=== PATIENT | female | born 1990 | race Caucasian/White ===

== ENCOUNTER 2016-04-02 13:39 | Outpatient (CLI) ==
[2015-09-26 15:52] VITALS: BMI 17.1
[2016-04-02 14:35] LABS: ALBUMIN/GLOBULIN RATIO 1.25; ANION GAP 15.8; BILIRUBIN,TOTAL 0.38 mg/dL (0.00-1.20); BUN/CREATININE RATIO 11.25; CREATININE 0.8 mg/dL (0.60-1.30); POTASSIUM 3.8 mmol/L (3.5-5.10); TOTAL PROTEIN 7.2 g/dL (6.4-8.2)
[2016-04-04 08:51] LABS: THYROGLOBULIN ANTIBODY <1.0 IU/mL (0.0-0.9); THYROGLOBULIN BY IMA 3.2 ng/mL (1.5-38.5)
== END 2016-04-02 13:40 | disposition home or self-care (01) ==
LOC: LAB 13:39
PROVIDERS: ATTEND Internal Medicine Endocrinology, Diabetes & Metabolism
DX: E89.0 Postprocedural hypothyroidism (principal); E83.51 Hypocalcemia; E20.9 Hypoparathyroidism, unspecified
CPT/HCPCS: 36415; 80053; 84100; 84439; 84443; 86800

== ENCOUNTER 2016-09-10 11:39 | Outpatient (CLI) ==
[2015-09-26 15:52] VITALS: BMI 17.1
[2016-09-10 12:55] LABS: CALCIUM 7.6 mg/dL (8.2-10.2); PHOSPHORUS 4.8 mg/dL (2.5-4.9)
== END 2016-09-10 11:40 | disposition home or self-care (01) ==
LOC: LAB 11:39
PROVIDERS: ATTEND Internal Medicine Endocrinology, Diabetes & Metabolism
DX: E89.0 Postprocedural hypothyroidism (principal); E20.9 Hypoparathyroidism, unspecified; E83.51 Hypocalcemia
CPT/HCPCS: 36415; 82306; 82310; 83970; 84100; 84439; 84443; 86800

== ENCOUNTER 2016-12-07 17:16 | Emergency (ER) ==
[2016-12-07 17:22] VITALS: BP 106/68; TEMP 98.9; BMI 22.4
--- NOTE | 2016-12-07 18:00 | ED.PDOC ---
General ED Provider: Dr. JUNIOR BREAUX-ER Chief Complaint: Non-specific Complaint Stated Complaint: my jaws hurt to chew Time Seen by Physician: 17:20 Mode of Arrival: Walk-In Information Source: Patient Exam Limitations: No limitations [facility] and Triage Documentation Reviewed and Agree: Yes EENT Complaint Exam - Dental/Oral Complaint/Exam Mechanism of Injury: No known trauma Onset/Duration: several days Symptoms Are: Still present Timing: Intermittent Initial Severity: Mild Current Severity: Moderate Location: both tmj areas Character: Reports: Dull, Aching Aggravating: Reports: Heat, Cold, Chewing Alleviating: Reports: None Associated Signs and Symptoms: Denies: Swelling, Discharge, Fever, Foul odor, Foul taste in mouth Related History: Reports: Similar episode Dental/Oral Surgical History: Reports: None Tooth Findings: Present: Normal findings Cervical Lymphadenopathy Present: No Facial Swelling Present: No Bleeding Present: No Oropharynx Findings: Absent: Clots, Active bleeding Septal Hematoma: No Foreign Body Present: No Dysphagia Present: No Drooling Present: No Asymmetrical Tonsillar Swelling Present: No Uvula Midline: No Ivanna-tonsillar Fluctuence: No Trismus Present: No Palatal Petechiae Present: No Scarlatinaform Rash Present: No Differential Diagnoses: TMJ Syndrome Review of Systems - Review Of Systems Constitutional: Reports: No symptoms Eyes: Reports: No symptoms Ears, Nose, Mouth, Throat: Reports: Mouth pain Respiratory: Reports: No symptoms Cardiac: Reports: No symptoms GI: Reports: No symptoms : Reports: No symptoms Musculoskeletal: Reports: No symptoms Skin: Reports: No symptoms Neurological: Reports: No symptoms Endocrine: Reports: No symptoms Hematologic/Lymphatic: Reports: No symptoms All Other Systems: Reviewed and Negative Past Medical History - Past Medical History Previously Healthy: No Endocrine: Reports: Hypothyroid, Hyperthyroid Cardiovascular: Reports: None Respiratory: Reports: None Hematological: Reports: None Gastrointestinal: Reports: None Genitourinary: Reports: None Neuro/Psych: Reports: None Musculoskeletal: Reports: None Cancer: Reports: Other (thyroid) Last Menstrual Period: 1 week ago - Surgical History General Surgical History: Reports: Other (thyroid 6 months ago) - Family History Family History: Reports: Unknown - Social History Smoking Status: Current every day smoker, Light tobacco smoker Hx Substance Use: No Alcohol Screening: None Lives: With family Physical Exam - Physical Exam Appearance: Well-appearing, No pain distress, Well-nourished Pain Distress: Mild Eyes: BELLE, EOMI, Conjunctiva clear ENT: Ears normal, Nose normal, Oropharynx normal Neck: Supple Respiratory: Airway patent, Breath sounds clear, Breath sounds equal, Respirations nonlabored Cardiovascular: RRR, Pulses normal, No rub, No murmur GI/: Soft, Nontender, No masses, Bowel sounds normal, No Organomegaly Musculoskeletal: Normal strength, ROM intact, No edema, No calf tenderness Skin: Warm, Dry, Normal color Neurological: Sensation intact Psychiatric: Affect appropriate, Mood appropriate Interpretation - Radiology Interpretation Radiology Interpretation By: Radiologist Radiology Results: Negative Exam Interpreted: CT Scan Critical Care Note - Critical Care Note Total Time (mins): 0 Course - Course Orders, Labs, Meds: Orders Category Date Time Status CT MAXILLOFACIAL W/O CONTRAST Stat RADS 12/07/16 17:30 Taken Vital Signs: Temp Pulse Resp BP Pulse Ox 12/07/16 17:17 98.9 F 84 16 106/68 98 Departure - Departure Time of Disposition: 18:04 Disposition: HOME SELF-CARE Discharge Problem: TMJ (temporomandibular joint disorder) Instructions: Temporomandibular Disorder (ED) Condition: Good Pt referred to PMD for follow-up: Yes Additional Instructions: toradol 10mg qid prn pain #16--flexeril 5mg tid #21--f/u wtih pcp Allergies/Adverse Reactions: Allergies contrast dye Allergy (Severe, Uncoded 12/07/16 17:22) rash pt notified to get medical alert necklace Home Medications: Ambulatory Orders Calcium Carbonate [Calcium] 600 mg PO DAILY 08/16/14 Cholecalciferol (Vitamin D3) [Vitamin D3] 1,000 unit PO DAILY 08/31/14 Ibuprofen 200 mg PO PRN PRN 09/07/14 Levothyroxine Sodium [Synthroid] 125 mcg PO d 06/15/15 Disposition Discussed With: Patient
--- NOTE | 2016-12-07 18:03 | CT ---
EXAM: Noncontrast CT of the facial bones HISTORY: Bilateral TMJ pain COMPARISON: 09/17/2013 TECHNIQUE: Noncontrast CT of the facial bone FINDINGS: No facial bone fracture is identified. The paranasal sinuses are well-aerated, and no paranasal sinu s air-fluid levels are identified. The nasal septum mildly deviates to the right. The temporomandib ular joints appear unremarkable. The mastoid air cells are well-aerated. Surgical clips of the right side of the neck are seen. The unenhanced parotid glands are unremarkable. IMPRESSION: Unremarkable appearance of the bilateral temporomandibular joints. No facial bone fracture identified. Operative changes of the right side of the neck.
== END 2016-12-07 18:12 | disposition home or self-care (01) ==
LOC: ED 17:16
DX: M26.609 Unspecified temporomandibular joint disorder, unspecified side (principal); F17.210 Nicotine dependence, cigarettes, uncomplicated
CPT/HCPCS: 99282

== ENCOUNTER 2016-12-15 11:09 | Outpatient (CLI) | END 2016-12-15 11:10 | disposition home or self-care (01) | LOC: LAB 11:09 | PROVIDERS: ATTEND Internal Medicine Endocrinology, Diabetes & Metabolism | DX: E89.0 Postprocedural hypothyroidism (principal); C73 Malignant neoplasm of thyroid gland | CPT/HCPCS: 36415; 84439; 84443 ==

== ENCOUNTER 2017-01-17 16:07 | Emergency (ER) ==
[2017-01-17 16:11] VITALS: BP 114/74; TEMP 98.8; BMI 21.2
[2017-01-17] MEDS ORDERED: TORADOL PO STA (16:26)
--- NOTE | 2017-01-17 16:27 | ED.PDOC ---
General ED Provider: Dr. JOHNSON PARRA Chief Complaint: Abdominal Pain Stated Complaint: Patient complains of right upper quadrant pain that started today after she ate some turkey. Denies any nausea or vomiting. Time Seen by Physician: 16:26 Mode of Arrival: Walk-In Information Source: Patient Exam Limitations: No limitations [facility] and Triage Documentation Reviewed and Agree: Yes GI Complaint Exam - Abdominal Pain Complaint/Exam Onset: Sudden Duration: constant Symptoms Are: Still present Timing: Constant Initial Severity: Severe Current Severity: Moderate Location of Pain: RUQ Radiates To: Denies: Back, Flank, LLQ, RLQ, Inguinal Character: Reports: Aching Aggravating: Reports: Food (Fatty ) Alleviating: Reports: None Associated Signs and Symptoms: Reports: Decreased appetite. Denies: Diaphoresis , Fever, Cough, Chest pain, Dizziness, Back pain, Constipation, Blood in stool, Dysuria, Urinary frequency, Decreased urine output, Vaginal bleeding, Vaginal discharge, Nausea, Vomiting, Diarrhea, Sore throat, Decreased activity AAA Risk Factors: Reports: None Cardiac Risk Factors: Reports: None Ovarian Torsion Risk Factors: Reports: Tubal ligation Surgical Obstruction Risk Factors: Reports: None Related Surgical History: Reports: None Patient Rh Status: Negative Abdominal Findings: Absent: Pulsatile mass, Abdominal distention, Unequal femoral pulses, Rebound tenderness, Peritoneal signs, McBurney's Point tender, CVA Tenderness, Hernia, Inguinal swelling Adnexal Exam: Present: Normal Findings Rectal Exam: Present: Normal Findings Differential Diagnoses: Pancreatitis, UTI, Ovarian Cyst Review of Systems - Review Of Systems Constitutional: Reports: No symptoms Eyes: Reports: No symptoms Ears, Nose, Mouth, Throat: Reports: No symptoms Respiratory: Reports: No symptoms Cardiac: Reports: No symptoms GI: Reports: Abdominal pain (RUQ) : Reports: No symptoms Musculoskeletal: Reports: No symptoms Skin: Reports: No symptoms Neurological: Reports: No symptoms Endocrine: Reports: No symptoms Hematologic/Lymphatic: Reports: No symptoms All Other Systems: Reviewed and Negative Past Medical History - Past Medical History Previously Healthy: No Endocrine: Reports: Hypothyroid, Hyperthyroid Cardiovascular: Reports: None Respiratory: Reports: None Hematological: Reports: None Gastrointestinal: Reports: None Genitourinary: Reports: None Neuro/Psych: Reports: None Musculoskeletal: Reports: None Cancer: Reports: Other (thyroid) Last Menstrual Period: [id number] - Surgical History General Surgical History: Reports: Tubal ligation (removed completely ), Other ( thyroid 6 months ago) - Family History Family History: Reports: Unknown - Social History Smoking Status: Current every day smoker, Light tobacco smoker Hx Substance Use: No Alcohol Screening: None - Immunizations Tetanus Shot up to Date: Yes Physical Exam - Physical Exam Appearance: Well-appearing, No pain distress, Well-nourished Eyes: BELLE, EOMI, Conjunctiva clear ENT: Ears normal, Nose normal, Oropharynx normal Respiratory: Airway patent, Breath sounds clear, Breath sounds equal, Respirations nonlabored Cardiovascular: RRR, Pulses normal, No rub, No murmur GI/: Soft, No masses, Bowel sounds normal, No Organomegaly, Tender (Right Upper quadrant tenderness. ) Musculoskeletal: Normal strength, ROM intact, No edema, No calf tenderness Skin: Warm, Dry, Normal color Neurological: Sensation intact, Motor intact, Reflexes intact, Cranial nerves intact, Alert, Oriented Psychiatric: Affect appropriate, Mood appropriate Interpretation - Radiology Interpretation Radiology Interpretation By: Radiologist Radiology Results: Negative Exam Interpreted: CT Scan Critical Care Note - Critical Care Note Total Time (mins): 0 Course - Course Orders, Labs, Meds: Orders Category Date Time Status UA [URINALYSIS C & S IF INDICATED] Stat LAB 01/17/17 17:08 Uncollected Ketorolac Tromethamine [Toradol] MEDS 01/17/17 16:26 Discontinued 20 mg PO ONCE STA CT ABD/PEL WO RENAL STONE PROT Stat RADS 01/17/17 16:23 Completed Medications Discontinued Medications Generic Name Dose Route Start Last Admin Trade Name Jean Pierreq PRN Reason Stop Dose Admin Ketorolac Tromethamine 20 mg 01/17/17 16:26 01/17/17 16:40 Toradol PO 01/17/17 16:27 20 mg ONCE STA Administration Vital Signs: Temp Pulse Resp BP Pulse Ox 01/17/17 16:07 98.8 F 92 H 18 114/74 98 Departure - Departure Time of Disposition: 17:08 Disposition: HOME SELF-CARE Discharge Problem: Abdominal pain Instructions: Acute Abdominal Pain (ED) Condition: Fair Pt referred to PMD for follow-up: Yes Additional Instructions: Take Toradol as needed for pain Follow up with your Doctor for Ultra sound and HIDA scan Prescriptions: Ondansetron HCl [Zofran Tab] 4 mg PO Q8H PRN #14 tablet PRN Reason: Nausea / Vomiting Pantoprazole Sodium [Protonix] 40 mg PO QDAC #30 tablet. Allergies/Adverse Reactions: Allergies contrast dye Allergy (Severe, Uncoded 01/17/17 16:11) rash pt notified to get medical alert necklace Home Medications: Ambulatory Orders Calcium Carbonate [Calcium] 600 mg PO DAILY 08/16/14 Cholecalciferol (Vitamin D3) [Vitamin D3] 1,000 unit PO DAILY 08/31/14 Levothyroxine Sodium [Synthroid] 137 mcg PO DAILY 01/17/17 Ondansetron HCl [Zofran Tab] 4 mg PO Q8H PRN #14 tablet 01/17/17 Pantoprazole Sodium [Protonix] 40 mg PO QDAC #30 tablet. 01/17/17 Disposition Discussed With: Patient
--- NOTE | 2017-01-17 16:49 | CT ---
EXAM: CT scan of the abdomen and pelvis without contrast HISTORY: Right upper quadrant pain TECHNIQUE: Helical imaging of the abdomen and pelvis was performed without intravenous contrast. 3 mm thin axial images and coronal and sagittal reconstructions were provided for interpretation. Comparison 03/19/2015 CT scan of the abdomen and pelvis. FINDINGS: The liver, spleen, pancreas, adrenal glands and kidneys appear normal. The proximal urete rs are normal size. The small and large bowel loops caliber. There is no free air. No acute abnorm alities are seen within the anterior abdominal wall. The appendix appears normal. The helical images obtained through the pelvis demonstrate a normal appearance of the rectum, urinary bladder. There is no free fluid seen within the pelvis. Lung bases are clear. No lytic or blastic lesions are seen within the osseous structures. IMPRESSION: There is no bowel obstruction or acute inflammatory change seen within the abdomen and p rickey. There is no ureteral obstruction.
[2017-01-17 17:22] LABS: BILIRUBIN,URINE Negative (NEGATIVE); KETONES,URINE Negative (NEGATIVE); LEUKOCYTE ESTERASE ,URINE Negative (NEGATIVE); NITRITE,URINE Negative (NEGATIVE); PH,URINE 5.5 (5-9); PROTEIN,URINE Negative (NEGATIVE); URINE, BLOOD Negative (NEGATIVE)
[2017-01-17 17:24] LABS: ADD URINE MICROSCOPIC NO
== END 2017-01-17 17:37 | disposition home or self-care (01) ==
LOC: ED 16:07
DX: R10.11 Right upper quadrant pain (principal); F17.210 Nicotine dependence, cigarettes, uncomplicated
CPT/HCPCS: 74176; 81001; 99283

== ENCOUNTER 2017-01-21 07:20 | Outpatient (CLI) ==
--- NOTE | 2017-01-21 08:02 | US ---
EXAM: Ultrasound abdomen limited right upper quadrant HISTORY: Generalized abdominal pain COMPARISON: None TECHNIQUE: Limited ultrasound abdomen right upper quadrant was performed FINDINGS: The visualized portion pancreas appears normal. Portions of the pancreas obscured seconda ry shadowing. Liver normal in size and echogenicity. Main portal vein patent with normal direction of flow. Small echogenic focus dependent gallbladder measuring 0.3 cm, may represent focal sludge ve rsus nonshadowing stone versus less likely small polyp. No wall thickening or pericholecystic fluid. No biliary duct dilation with common bile duct measuring 0.3 cm. IMPRESSION: Small focal gallbladder sludge versus nonshadowing cholelithiasis versus less likely polyp. No gallb ladder wall thickening.
== END 2017-01-21 07:21 | disposition home or self-care (01) ==
LOC: RAD 07:20
PROVIDERS: ATTEND Nurse Practitioner Family
DX: R10.84 Generalized abdominal pain (principal); R10.817 Generalized abdominal tenderness

== ENCOUNTER 2017-04-14 15:25 | Outpatient (CLI) | END 2017-04-14 15:26 | disposition home or self-care (01) | LOC: LAB 15:25 | PROVIDERS: ATTEND Internal Medicine Endocrinology, Diabetes & Metabolism | DX: E89.0 Postprocedural hypothyroidism (principal); C73 Malignant neoplasm of thyroid gland | CPT/HCPCS: 36415; 84439; 84443 ==

== ENCOUNTER 2017-06-12 15:53 | Outpatient (CLI) | END 2017-06-12 15:54 | disposition home or self-care (01) | LOC: LAB 15:53 | PROVIDERS: ATTEND Internal Medicine Endocrinology, Diabetes & Metabolism | DX: C73 Malignant neoplasm of thyroid gland (principal) | CPT/HCPCS: 36415; 84443 ==

== ENCOUNTER 2017-10-12 16:19 | Outpatient (CLI) | END 2017-10-12 16:20 | disposition home or self-care (01) | LOC: LAB 16:19 | PROVIDERS: ATTEND Internal Medicine Endocrinology, Diabetes & Metabolism | DX: E83.51 Hypocalcemia (principal); E20.9 Hypoparathyroidism, unspecified | CPT/HCPCS: 36415; 80048; 84100 ==

== ENCOUNTER 2017-10-22 09:43 | Outpatient (CLI) | END 2017-10-22 09:44 | disposition home or self-care (01) | LOC: RHC-LAB 09:43 | PROVIDERS: ATTEND Nurse Practitioner Family | DX: L81.9 Disorder of pigmentation, unspecified (principal); R53.83 Other fatigue | CPT/HCPCS: 36415; 80053; 80061; 82306; 85025 ==

== ENCOUNTER 2017-11-24 09:17 | Outpatient (CLI) | END 2017-11-24 09:18 | disposition home or self-care (01) | LOC: RHC-LAB 09:17 | PROVIDERS: ATTEND Nurse Practitioner Family | DX: R52 Pain, unspecified (principal) | CPT/HCPCS: 87502 ==

== ENCOUNTER 2018-04-01 04:20 | Emergency (ER) ==
[2018-04-01 04:29] VITALS: TEMP 99.1; BMI 22.4
[2018-04-01 04:45] VITALS: BP 112/68
--- NOTE | 2018-04-01 05:13 | ED.PDOC ---
General ED Provider: Dr. JOHNSON PARRA Chief Complaint: Dizziness Stated Complaint: Patient states that she started having palpitation since she was started on paxil 3 days ago. States she had panic attack symtoms for 3 hours. States that she will never take paxil again. Apparently had poor luck with Buspar and zoloft in the past. Time Seen by Physician: 04:40 Mode of Arrival: Wheelchair Information Source: Patient Exam Limitations: No limitations Primary Care Provider: KIMI ROBLES Nursing and Triage Documentation Reviewed and Agree: Yes Does patient meet sepsis criteria?: No System Inflammatory Response Syndrome: Not Applicable Sepsis Protocol: For patient's 13 years and over: Temp is 96.8 and below OR 101 and greater Pulse >90 BPM Resp >20/minute Acutely Altered Mental Status Are patient's symptoms suggestive of a new infection, such as: -Pneumonia -Skin, Soft Tissue -Endocarditis -UTI -Bone, Joint Infection -Implantable Device -Acute Abdominal Infection -Wound Infection -Meningitis -Blood Stream Catheter Infection -Unknown Cardiovascular Complaint Exam - Palpitations Complaint/Exam Onset/Duration: 3 hours ago Symptoms Are: Resolved Timing: Intermittent Initial Severity: Severe Current Severity: None Character: Reports: Skipped beats Aggravating: Reports: None Alleviating: Reports: None Associated Signs and Symptoms: Reports: Lightheadedness, Chest pain, Shortness of breath, Diaphoresis Related Surgical History: Reports: None Pulmonary Embolism Risk Factors: Reports: None Atrial Fibrillation Risk Factors: Reports: Hypothyroidism Thyroid Exam: Normal Differential Diagnoses: AV Block, Hypokalemia, Myocarditis, Paroxysmal SVT Quality Indicators for AMI: EKG in 10min. Quality Indicators for Cardiac Chest Pain: EKG in 10min. Quality Indicator For Non-Traumatic Chest Pain/Syncope: EKG Performed Review of Systems - Review Of Systems Constitutional: Reports: No symptoms Eyes: Reports: No symptoms Ears, Nose, Mouth, Throat: Reports: No symptoms Respiratory: Reports: No symptoms Cardiac: Reports: Lightheadedness, Palpitations GI: Reports: No symptoms : Reports: No symptoms Musculoskeletal: Reports: No symptoms Skin: Reports: No symptoms Neurological: Reports: Anxiety Endocrine: Reports: No symptoms Hematologic/Lymphatic: Reports: No symptoms All Other Systems: Reviewed and Negative Past Medical History - Past Medical History Previously Healthy: No Endocrine: Reports: Hypothyroid, Hyperthyroid Cardiovascular: Reports: None Respiratory: Reports: None Hematological: Reports: None Gastrointestinal: Reports: None Genitourinary: Reports: None Neuro/Psych: Reports: None Musculoskeletal: Reports: None Cancer: Reports: Other (thyroid) Last Menstrual Period: 02/24/18 - Surgical History General Surgical History: Reports: Tubal ligation (removed completely ), Other ( thyroid 6 months ago) - Family History Family History: Reports: Unknown - Social History Smoking Status: Current every day smoker, Light tobacco smoker Hx Substance Use: No Alcohol Screening: None - Immunizations Tetanus Shot up to Date: No (unsure) Physical Exam - Physical Exam Appearance: Ill-appearing Eyes: BELLE, EOMI, Conjunctiva clear ENT: Ears normal, Nose normal, Oropharynx normal Respiratory: Airway patent, Breath sounds clear, Breath sounds equal, Respirations nonlabored Cardiovascular: RRR, Pulses normal, No rub, No murmur GI/: Soft, Nontender, No masses, Bowel sounds normal, No Organomegaly Musculoskeletal: Normal strength, ROM intact, No edema, No calf tenderness Skin: Warm, Dry, Normal color Neurological: Sensation intact, Motor intact, Reflexes intact, Cranial nerves intact, Alert, Oriented Psychiatric: Anxious Interpretation - Oncology Consultant Rate: Normal Rhythm: Sinus Ectopy: None - EKG Interpretation Time of EKG #1: 04:50 Rate: Normal Rhythm: Sinus Ectopy: None [place]: NL ST Segment: Normal Interpretation: Borderline with possible Left atrial Enlargment. Critical Care Note - Critical Care Note Total Time (mins): 0 Course - Course Hematology/Chemistry: 04/01/18 04:44 04/01/18 04:44 Orders, Labs, Meds: Lab Review 04/01/18 04/01/18 04/01/18 04:44 04:44 04:44 WBC 10.02 RBC 4.36 Hgb 13.1 Hct 38.7 MCV 88.8 MCH 30.0 MCHC 33.9 RDW Coeff of Mey 12.1 Plt Count 163 Immature Gran % (Auto) 0.3 Neut % (Auto) 87.8 Lymph % (Auto) 6.4 L [place] % (Auto) 4.6 Eos % (Auto) 0.4 Baso % (Auto) 0.5 Immature Gran # (Auto) 0.0 Neut # (Auto) 8.8 H Lymph # (Auto) 0.6 [place] # (Auto) 0.5 Eos # (Auto) 0.0 Baso # (Auto) 0.1 Sodium 139.6 Potassium 4.22 Chloride 105.5 Carbon Dioxide 25.5 Anion Gap 12.82 BUN 11.8 Creatinine 0.65 Estimated GFR (MDRD) 109.00 BUN/Creatinine Ratio 18.15 Glucose 103.0 Calcium 7.49 L Magnesium 1.85 Total Bilirubin 0.25 AST 24.2 ALT 13.9 Alkaline Phosphatase 54.3 Total Creatine Kinase 90.5 Troponin I < 0.012 Total Protein 7.59 Albumin 4.38 Globulin 3.21 Albumin/Globulin Ratio 1.36 Orders Category Date Time Status EKG-(ED ONLY) Stat CARDIO 04/01/18 04:37 Completed CBC W/ AUTO DIFF Stat LAB 04/01/18 04:44 Completed CK [CREATINE KINASE] Stat LAB 04/01/18 04:44 Completed CMP [COMPREHENSIVE METABOLIC PANEL] Stat LAB 04/01/18 04:44 Completed MAGNESIUM Stat LAB 04/01/18 04:44 Completed TROPONIN I Stat LAB 04/01/18 04:44 Completed Vital Signs: Temp Pulse Resp BP Pulse Ox 04/01/18 04:44 88 22 112/68 98 04/01/18 04:20 99.1 F 89 20 105/69 98 LATASHA Risk Score Age >/= 65: No >/= 3 CAD Risk Factors: No Known CAD (Stenosis >/= 50%): No ASA Use in Past 7 Days: No Severe Angina (>/= 2 episodes in 24 hours): No EKG ST Changes >/= 0.5mm: No Postive Cardiac Marker: No LATASHA Total Score: 0 LATASHA Risk Score: Risk Score Odds of by 30D 0 0.1 (0.1-0.2) 1 0.3 (0.2-0.3) 2 0.4 (0.3-0.5) 3 0.7 (0.6-0.9) 4 1.2 (1.0-1.5) 5 2.2 (1.9-2.6) 6 3.0 (2.5-3.6) 7 4.8 (3.8-6.1) Departure - Departure Time of Disposition: 05:50 Disposition: HOME SELF-CARE Discharge Problem: Panic attacks Instructions: Anxiety (ED) Condition: Stable Pt referred to PMD for follow-up: Yes IPMP verified?: No Additional Instructions: take medications as prescribed Follow up with PCP in 3 days Prescriptions: Hydroxyzine HCl 25 mg PO TID PRN #45 tablet PRN Reason: Anxiety Allergies/Adverse Reactions: Allergies contrast dye Allergy (Severe, Uncoded 04/01/18 04:27) rash pt notified to get medical alert necklace Home Medications: Ambulatory Orders Calcium Carbonate [Calcium] 600 mg PO DAILY 08/16/14 Levothyroxine Sodium [Synthroid] 137 mcg PO DAILY 01/17/17 Hydroxyzine HCl 25 mg PO TID PRN #45 tablet 04/01/18 Disposition Discussed With: Patient, Family
== END 2018-04-01 05:45 | disposition home or self-care (01) ==
LOC: ED 04:20
DX: F41.0 Panic disorder [episodic paroxysmal anxiety] (principal); E03.9 Hypothyroidism, unspecified; R42 Dizziness and giddiness; R00.2 Palpitations; F17.210 Nicotine dependence, cigarettes, uncomplicated; R07.9 Chest pain, unspecified
CPT/HCPCS: 36415; 80053; 82550; 83735; 84484; 85025; 93005; 93010; 99283

== ENCOUNTER 2018-06-30 18:57 | Emergency (ER) ==
[2018-06-30 19:06] VITALS: BP 117/74; TEMP 98.5; BMI 22.5
[2018-06-30] MEDS ORDERED: DEMEROL 50 MG/ML VIAL IM STA (19:15)
[2018-06-30] MEDS ORDERED: GI COCKTAIL PO STA (19:15)
[2018-06-30] MEDS ORDERED: PHENERGAN 25 MG/ML VIAL IM STA (19:15)
--- NOTE | 2018-06-30 20:06 | CT ---
EXAM: CT scan abdomen pelvis without contrast HISTORY: Abdominal pain COMPARISON: CT scan abdomen pelvis 03/19/2015 FINDINGS: Contiguous axial images obtained through the abdomen pelvis without contrast utilizing 3-m m collimation. Sagittal and coronal reconstructions were imaged and reviewed.. The visualized lung bases are clear. There is mild fatty infiltration of the liver. The gallbladder is fluid filled wit hout cholelithiasis.. The abdominal aorta is normal in course and caliber. The kidneys are morpholo gically normal. There is a normal appendix. There is no free fluid or inflammatory changes.. There is thickening of the transverse and lesser extent the descending colon suggesting colitis. Follicle s are seen in the bilateral ovaries. The bladder is small volumed limiting evaluation. Bone windows reveals no evidence of lytic or blastic Rey IMPRESSION: Colonic wall thickening suggests mild colitis. There is no free fluid. Normal appendix. Fatty liver.
--- NOTE | 2018-06-30 20:18 | ED.PDOC ---
General ED Provider: Dr. JUNIOR BREAUX-ER Chief Complaint: Abdominal Pain Stated Complaint: I HAVE A BUBBLE---I THINK IT MIGHT BE MY GB--DENIES ANY DIARRHEA OR BLOOD IN THE STOOL Time Seen by Physician: 19:00 Mode of Arrival: Walk-In Information Source: Patient Exam Limitations: No limitations Primary Care Provider: KIMI ROBLES Nursing and Triage Documentation Reviewed and Agree: Yes Does patient meet sepsis criteria?: No System Inflammatory Response Syndrome: Not Applicable Sepsis Protocol: For patient's 13 years and over: Temp is 96.8 and below OR 101 and greater Pulse >90 BPM Resp >20/minute Acutely Altered Mental Status Are patient's symptoms suggestive of a new infection, such as: -Pneumonia -Skin, Soft Tissue -Endocarditis -UTI -Bone, Joint Infection -Implantable Device -Acute Abdominal Infection -Wound Infection -Meningitis -Blood Stream Catheter Infection -Unknown GI Complaint Exam - Abdominal Pain Complaint/Exam Onset: Gradual Duration: SEVERAL HOURS Symptoms Are: Still present Timing: Intermittent Initial Severity: Mild Current Severity: Mild Location of Pain: RUQ, Epigastric Character: Reports: Dull, Aching Aggravating: Reports: None Alleviating: Reports: Spontaneous resolution Associated Signs and Symptoms: Denies: Diaphoresis, Fever, Cough, Chest pain, Dizziness, Back pain, Constipation, Blood in stool, Dysuria, Urinary frequency, Decreased urine output, Decreased appetite, Vaginal bleeding, Vaginal discharge , Nausea, Vomiting, Diarrhea, Sore throat, Decreased activity Abdominal Findings: Present: None Differential Diagnoses: Appendicitis, Constipation Review of Systems - Review Of Systems Constitutional: Reports: No symptoms Eyes: Reports: No symptoms Ears, Nose, Mouth, Throat: Reports: No symptoms Respiratory: Reports: No symptoms Cardiac: Reports: No symptoms GI: Reports: Abdominal pain : Reports: No symptoms Musculoskeletal: Reports: No symptoms Skin: Reports: No symptoms Neurological: Reports: No symptoms Endocrine: Reports: No symptoms Hematologic/Lymphatic: Reports: No symptoms All Other Systems: Reviewed and Negative Past Medical History - Past Medical History Previously Healthy: No Endocrine: Reports: Hypothyroid, Hyperthyroid Cardiovascular: Reports: None Respiratory: Reports: None Hematological: Reports: None Gastrointestinal: Reports: None Genitourinary: Reports: None Neuro/Psych: Reports: None Musculoskeletal: Reports: None Cancer: Reports: Other (thyroid) Last Menstrual Period: 1 week - Surgical History General Surgical History: Reports: Tubal ligation (removed completely ), Other ( thyroid 6 months ago) - Family History Family History: Reports: Unknown - Social History Smoking Status: Current every day smoker, Light tobacco smoker Hx Substance Use: No Alcohol Screening: None Physical Exam - Physical Exam Appearance: Well-appearing, No pain distress, Well-nourished Pain Distress: Mild Eyes: BELLE, EOMI, Conjunctiva clear ENT: Ears normal, Nose normal, Oropharynx normal Neck: Supple Respiratory: Airway patent, Breath sounds clear, Breath sounds equal, Respirations nonlabored Cardiovascular: RRR, Pulses normal, No rub, No murmur GI/: Soft, Nontender, No masses, Bowel sounds normal, No Organomegaly Musculoskeletal: Normal strength, ROM intact, No edema, No calf tenderness Skin: Warm, Dry, Normal color Neurological: Sensation intact, Motor intact, Reflexes intact, Cranial nerves intact, Alert, Oriented Psychiatric: Affect appropriate, Mood appropriate Interpretation - Radiology Interpretation Radiology Interpretation By: Radiologist Radiology Results: Negative Exam Interpreted: CT Scan Re-Evaluation - Re-Evaluation Time of Re-Evaluation: 20:17 Pain Level: 0 Appearance: NAD Lungs: Clear Skin: Warm and Dry Neuro: Alert and Oriented X3 CV: RRR Critical Care Note - Critical Care Note Total Time (mins): 0 Course - Course Hematology/Chemistry: 06/30/18 19:24 06/30/18 19:24 Orders, Labs, Meds: Lab Review 06/30/18 06/30/18 06/30/18 19:10 19:24 19:24 WBC 4.81 RBC 4.10 L Hgb 12.9 Hct 37.0 MCV 90.2 MCH 31.5 H MCHC 34.9 RDW Coeff of Mey 12.6 Plt Count 168 Immature Gran % (Auto) 0.2 Neut % (Auto) 63.1 Lymph % (Auto) 26.8 Cedar % (Auto) 7.9 Eos % (Auto) 1.0 Baso % (Auto) 1.0 Immature Gran # (Auto) 0.0 Neut # (Auto) 3.0 Lymph # (Auto) 1.3 Cedar # (Auto) 0.4 Eos # (Auto) 0.1 Baso # (Auto) 0.1 ESR Sodium 138.3 Potassium 3.60 Chloride 101.7 Carbon Dioxide 25.8 Anion Gap 14.40 BUN 9.6 Creatinine 0.84 Estimated GFR (MDRD) 81.00 BUN/Creatinine Ratio 11.42 Glucose 85.5 Calcium 9.39 Total Bilirubin 0.57 AST 26.8 ALT 14.1 Alkaline Phosphatase 64.2 Total Protein 7.84 Albumin 5.00 Globulin 2.84 Albumin/Globulin Ratio 1.76 Amylase 77.9 Lipase 50.3 Serum , Qual Urine Color Yellow Urine Clarity Clear Urine pH 6.0 Ur Specific Antonito <=1.005 Urine Protein Negative Urine Glucose (UA) Negative Urine Ketones Negative Urine Blood Negative Urine Nitrite Negative Urine Bilirubin Negative Urine Urobilinogen 0.2 Ur Leukocyte Esterase Negative 06/30/18 06/30/18 19:24 19:24 WBC RBC Hgb Hct MCV MCH MCHC RDW Coeff of Mey Plt Count Immature Gran % (Auto) Neut % (Auto) Lymph % (Auto) Cedar % (Auto) Eos % (Auto) Baso % (Auto) Immature Gran # (Auto) Neut # (Auto) Lymph # (Auto) Cedar # (Auto) Eos # (Auto) Baso # (Auto) ESR 12 Sodium Potassium Chloride Carbon Dioxide Anion Gap BUN Creatinine Estimated GFR (MDRD) BUN/Creatinine Ratio Glucose Calcium Total Bilirubin AST ALT Alkaline Phosphatase Total Protein Albumin Globulin Albumin/Globulin Ratio Amylase Lipase Serum , Qual Negative Urine Color Urine Clarity Urine pH Ur Specific Antonito Urine Protein Urine Glucose (UA) Urine Ketones Urine Blood Urine Nitrite Urine Bilirubin Urine Urobilinogen Ur Leukocyte Esterase Orders Category Date Time Status AMYLASE Stat LAB 06/30/18 19:24 Completed CBC W/ AUTO DIFF Stat LAB 06/30/18 19:24 Completed COMPREHENSIVE METABOLIC PANEL Stat LAB 06/30/18 19:24 Completed ESR Stat LAB 06/30/18 19:24 Completed LIPASE Stat LAB 06/30/18 19:24 Completed SERUM Stat LAB 06/30/18 19:24 Completed URINALYSIS C & S IF INDICATED Stat LAB 06/30/18 19:10 Completed Mag-Al Plus//Lidocaine [Gi Cocktail] MEDS 06/30/18 19:15 Discontinued 30 ml PO ONCE STA Meperidine HCl/Pf [Demerol 50 mg/ml Vial] MEDS 06/30/18 19:15 Discontinued 50 mg IM ONCE STA Promethazine HCl [Phenergan 25 mg/ml Vial] MEDS 06/30/18 19:15 Discontinued 25 mg IM ONCE STA CT ABDOMEN/PELVIS WO CONTRAST Stat RADS 06/30/18 19:13 Completed Medications Discontinued Medications Generic Name Dose Route Start Last Admin Trade Name Freq PRN Reason Stop Dose Admin Al Hydroxide/Mg Hydroxide 30 ml 06/30/18 19:15 06/30/18 19:31 Gi Cocktail PO 06/30/18 19:16 30 ml ONCE STA Administration Meperidine HCl 50 mg 06/30/18 19:15 06/30/18 19:38 Demerol 50 Mg/Ml Vial IM 06/30/18 19:16 Not Given ONCE STA Promethazine HCl 25 mg 06/30/18 19:15 06/30/18 19:38 Phenergan 25 Mg/Ml Vial IM 06/30/18 19:16 Not Given ONCE STA Vital Signs: Temp Pulse Resp BP Pulse Ox 06/30/18 18:58 98.5 F 66 20 117/74 97 Departure - Departure Time of Disposition: 20:17 Disposition: HOME SELF-CARE Discharge Problem: Abdominal pain Instructions: Acute Abdominal Pain (ED) Condition: Good Pt referred to PMD for follow-up: Yes IPMP verified?: No Additional Instructions: BENTYL 10-MG QID PRN PAIN #30,,,ZOFRAN 4MG Q 4HRS PRN #6---LOW FAT DIET---TALK TO YOUR PCP ABOUT GB STUDIES Allergies/Adverse Reactions: Allergies contrast dye Allergy (Severe, Uncoded 06/30/18 19:08) rash pt notified to get medical alert necklace Home Medications: Ambulatory Orders Calcium Carbonate [Calcium] 600 mg PO DAILY 08/16/14 Levothyroxine Sodium [Synthroid] 137 mcg PO DAILY 01/17/17 Disposition Discussed With: Patient
== END 2018-06-30 20:26 | disposition home or self-care (01) ==
LOC: ED 18:57
DX: R10.9 Unspecified abdominal pain (principal); F17.210 Nicotine dependence, cigarettes, uncomplicated
CPT/HCPCS: 36415; 80053; 81001; 82150; 83690; 84703; 85025; 85651; 99283

== ENCOUNTER 2018-07-06 00:31 | Emergency (ER) ==
[2018-07-06 00:55] VITALS: BP 111/71; TEMP 97.9; BMI 22.7
[2018-07-06] MEDS ORDERED: ATIVAN PO STA (01:03)
== END 2018-07-06 01:59 | disposition home or self-care (01) ==
LOC: ED 00:31
DX: F41.9 Anxiety disorder, unspecified (principal)
CPT/HCPCS: 99283

== ENCOUNTER 2018-07-09 08:00 | Outpatient (CLI) ==
--- NOTE | 2018-07-09 10:54 | NM ---
EXAM: Hepatobiliary scan HISTORY: Abdominal pain and nausea for 2 weeks. COMPARISON: None of this type. CT 06/30/2018. PROCEDURE: The patient was injected with 5.0 mCi of 99mTc mebrofenin intravenously. Images of the ab domen were obtained at 5 min intervals for 30 minutes. Additional images were obtained 45 minutes a nd 1 hour. The patient was then injected with 2 mcg of CCK by slow infusion while images of the gallb ladder were obtained to assess gallbladder contraction. FINDINGS: Sequential images demonstrate normal uptake of tracer into the liver. Activity is seen in the intrahepatic biliary ducts at about 10 minutes. The activity appears in the gallbladder at about 10 minutes. Subsequent images demonstrate increasing activity in the gallbladder. Activity first a ppears in the small bowel at 45 minutes. The gallbladder ejection fraction is 79% . IMPRESSION: 1.Normal hepatobiliary scan. 2.The gallbladder ejection fraction is 79% (normal).
== END 2018-07-09 08:01 | disposition home or self-care (01) ==
LOC: RAD 08:00
PROVIDERS: ATTEND Nurse Practitioner Family
DX: R10.31 Right lower quadrant pain (principal)

== ENCOUNTER 2018-08-09 12:29 | Outpatient (CLI) | END 2018-08-09 12:30 | disposition home or self-care (01) | LOC: LAB 12:29 | PROVIDERS: ATTEND Internal Medicine Endocrinology, Diabetes & Metabolism | DX: E89.0 Postprocedural hypothyroidism (principal) | CPT/HCPCS: 36415; 84439; 84443 ==

== ENCOUNTER 2018-08-22 10:08 | Emergency (ER) ==
[2018-08-22 10:16] VITALS: BP 123/81; TEMP 98.3; BMI 21.4
--- NOTE | 2018-08-22 11:31 | ED.PDOC ---
General ED Provider: Dr. JUNIOR ASTORGA Chief Complaint: Tooth Problem Stated Complaint: Infected and impacted Rt Lower wisdom tooth. Pain extending up into TMJ and submandibular region. [place] tooth has not erupted. States having "foul" taste in mouth and has observed "pus"draining from site of involved underlying tooth Time Seen by Physician: 10:20 Mode of Arrival: Walk-In Information Source: Patient Primary Care Provider: KIMI ROLBES Nursing and Triage Documentation Reviewed and Agree: Yes Does patient meet sepsis criteria?: No System Inflammatory Response Syndrome: Not Applicable Sepsis Protocol: For patient's 13 years and over: Temp is 96.8 and below OR 101 and greater Pulse >90 BPM Resp >20/minute Acutely Altered Mental Status Are patient's symptoms suggestive of a new infection, such as: -Pneumonia -Skin, Soft Tissue -Endocarditis -UTI -Bone, Joint Infection -Implantable Device -Acute Abdominal Infection -Wound Infection -Meningitis -Blood Stream Catheter Infection -Unknown EENT Complaint Exam - Dental/Oral Complaint/Exam Mechanism of Injury: No known trauma Onset/Duration: 5 days Symptoms Are: Worse Timing: Constant Initial Severity: Mild Current Severity: Moderate Location: Rt Mandibular region Character: Reports: Dull, Throbbing Aggravating: Reports: Chewing, Exertion Alleviating: Reports: None Associated Signs and Symptoms: Reports: Swelling, Discharge, Foul odor, Foul taste in mouth Related History: Reports: Similar episode Cardiac Risk Factors: Reports: None Dental/Oral Surgical History: Reports: None Tooth Findings: Present: Percussion tenderness, Abcess Cervical Lymphadenopathy Present: No Facial Swelling Present: Yes (Over rt proximal mandibular region ) Bleeding Present: No Oropharynx Findings: Absent: Clots, Active bleeding Foreign Body Present: No Dysphagia Present: Yes Drooling Present: No Asymmetrical Tonsillar Swelling Present: No Uvula Midline: No Ivanna-tonsillar Fluctuence: No Trismus Present: No Palatal Petechiae Present: No Scarlatinaform Rash Present: No Differential Diagnoses: Odontogenic Pain, Periodontic Disease Review of Systems - Review Of Systems Constitutional: Reports: No symptoms Eyes: Reports: No symptoms Ears, Nose, Mouth, Throat: Reports: Mouth pain Respiratory: Reports: No symptoms Cardiac: Reports: No symptoms GI: Reports: No symptoms : Reports: No symptoms Musculoskeletal: Reports: No symptoms Skin: Reports: No symptoms Neurological: Reports: No symptoms Endocrine: Reports: No symptoms Hematologic/Lymphatic: Reports: No symptoms All Other Systems: Reviewed and Negative Past Medical History - Past Medical History Previously Healthy: No Endocrine: Reports: Hypothyroid, Hyperthyroid Cardiovascular: Reports: None Respiratory: Reports: None Hematological: Reports: None Gastrointestinal: Reports: None Genitourinary: Reports: None Neuro/Psych: Reports: None Musculoskeletal: Reports: None Cancer: Reports: Other (thyroid) Last Menstrual Period: 1 week - Surgical History General Surgical History: Reports: Tubal ligation (removed completely ), Other ( thyroid 6 months ago) - Family History Family History: Reports: Unknown - Social History Smoking Status: Current every day smoker Hx Substance Use: No Alcohol Screening: None - Immunizations Tetanus Shot up to Date: Yes Physical Exam - Physical Exam Appearance: Well-appearing, No pain distress, Well-nourished Eyes: BELLE, EOMI, Conjunctiva clear ENT: Ears normal, Nose normal, Oropharynx normal, Erythema (Rt Lower gingival tissue post molar) Respiratory: Airway patent, Breath sounds clear, Breath sounds equal, Respirations nonlabored Cardiovascular: RRR, Pulses normal, No rub, No murmur GI/: Soft, Nontender, No masses, Bowel sounds normal, No Organomegaly Musculoskeletal: Normal strength, ROM intact, No edema, No calf tenderness Skin: Warm, Dry, Normal color Neurological: Sensation intact, Motor intact, Reflexes intact, Cranial nerves intact, Alert, Oriented Psychiatric: Affect appropriate, Mood appropriate Interpretation - Radiology Interpretation Radiology Interpretation By: Radiologist Radiology Results: No acute changes Exam Interpreted: CT Scan (Oralmaxilla facial) Critical Care Note - Critical Care Note Total Time (mins): 0 Course - Course Hematology/Chemistry: 08/22/18 11:05 08/22/18 11:05 Vital Signs: Temp Pulse Resp BP Pulse Ox 08/22/18 10:09 98.3 F 86 18 123/81 96 Departure - Departure Time of Disposition: 11:45 Disposition: HOME SELF-CARE Discharge Problem: Dentalgia, Impacted third molar tooth Discharge Problem: (Ruled Out): Impacted teeth Condition: Fair Pt referred to PMD for follow-up: Yes IPMP verified?: No Additional Instructions: Rinse mouth with warm salt water Take meds as directed See Dentist as planned Ibuprofen 800 mg take 3 daily Begin Keflex and hold Penicillin Prescriptions: Hydrocodone Bit/Acetaminophen [Brenton 5-325] 1 each PO Q4HR #10 tablet Allergies/Adverse Reactions: Allergies contrast dye Allergy (Severe, Uncoded 07/06/18 00:55) rash pt notified to get medical alert necklace Home Medications: Ambulatory Orders Calcium Carbonate [Calcium] 600 mg PO DAILY 08/16/14 Levothyroxine Sodium [Synthroid] 137 mcg PO DAILY 01/17/17 Cephalexin [Keflex] 500 mg PO Q8HR #21 capsule 08/22/18 Hydrocodone Bit/Acetaminophen [[place] 5-325] 1 each PO Q4HR #10 tablet 08/22/18 Disposition Discussed With: Patient
--- NOTE | 2018-08-22 11:35 | CT ---
EXAM: CT maxillofacial without contrast CLINICAL HISTORY: Right mandibular pain. TECHNIQUE: Multiple axial images were obtained through the maxillofacial region without contrast. S agittal and coronal reformats were obtained. FINDINGS: No fractures are seen involving the mandible, maxilla, zygomatic arches, pterygoid plates, and nasal bones. Surrounding soft tissues appear normal. Intracranial contents appear normal. IMPRESSION: No acute findings
== END 2018-08-22 12:05 | disposition home or self-care (01) ==
LOC: ED 10:08
DX: K08.89 Other specified disorders of teeth and supporting structures (principal); K01.1 Impacted teeth; F17.210 Nicotine dependence, cigarettes, uncomplicated
CPT/HCPCS: 36415; 80053; 85025; 99282

== ENCOUNTER 2018-09-21 21:12 | Emergency (ER) ==
[2018-09-21 21:24] VITALS: BP 117/71; TEMP 97.9; BMI 22.2
[2018-09-21] MEDS ORDERED: NICODERM 14 MG TD STA (21:31)
--- NOTE | 2018-09-21 23:42 | ED.PDOC ---
General ED Provider: Dr. JUNIOR BREAUX-ER Chief Complaint: Non-specific Complaint Stated Complaint: i am withdrawing from nicotine--i am dizzy and nauseated and having trouble sleeping Time Seen by Physician: 22:15 Mode of Arrival: Walk-In Information Source: Patient Exam Limitations: No limitations Primary Care Provider: KIMI ROBLES Nursing and Triage Documentation Reviewed and Agree: Yes Does patient meet sepsis criteria?: No System Inflammatory Response Syndrome: Not Applicable Sepsis Protocol: For patient's 13 years and over: Temp is 96.8 and below OR 101 and greater Pulse >90 BPM Resp >20/minute Acutely Altered Mental Status Are patient's symptoms suggestive of a new infection, such as: -Pneumonia -Skin, Soft Tissue -Endocarditis -UTI -Bone, Joint Infection -Implantable Device -Acute Abdominal Infection -Wound Infection -Meningitis -Blood Stream Catheter Infection -Unknown Neurological Complaint Exam - Dizziness Complaint/Exam Onset: Gradual Symptoms Are: Still present Timing: Constant Initial Severity: Mild Current Severity: Mild Character: Reports: Dizzy Aggravating: Reports: None Alleviating: Reports: None Associated Signs and Symptoms: Reports: Change in medication. Denies: Nausea, Vomiting, Diaphoresis, Tinnitus, Chest pain, Short of air, Palpitations, Unsteady gait, GI blood loss, Visual changes, Decreased oral intake, Change in diet, OTC meds, Loss of balance JVD Present: No Carotid Bruit Present: No Rectal Heme Positive: No Glascow Coma Scale (see protocol): 15 Nystagmus Present: No Gag Reflex Present: Yes Meningeal Signs Positive: No Focal Weakness: Present: None Focal Sensory Loss: Present: None Gait: Normal Romberg Test Positive: No Babinski Sign: Negative Right, Negative Left Heel to Toe Normal: No Melina-Hallpike Test Positive: No Differential Diagnoses: Anxiety, Other Review of Systems - Review Of Systems Constitutional: Reports: No symptoms Eyes: Reports: No symptoms Ears, Nose, Mouth, Throat: Reports: No symptoms Respiratory: Reports: No symptoms Cardiac: Reports: No symptoms GI: Reports: Nausea : Reports: No symptoms Musculoskeletal: Reports: No symptoms Skin: Reports: No symptoms Neurological: Reports: Anxiety, Other Endocrine: Reports: No symptoms Hematologic/Lymphatic: Reports: No symptoms All Other Systems: Reviewed and Negative Past Medical History - Past Medical History Previously Healthy: No Endocrine: Reports: Hypothyroid, Hyperthyroid Cardiovascular: Reports: None Respiratory: Reports: None Hematological: Reports: None Gastrointestinal: Reports: None Genitourinary: Reports: None Neuro/Psych: Reports: None Musculoskeletal: Reports: None Cancer: Reports: Other (thyroid) Last Menstrual Period: LAST WEEK - Surgical History General Surgical History: Reports: Tubal ligation (removed completely ), Other ( thyroid 6 months ago) - Family History Family History: Reports: Unknown - Social History Smoking Status: Former smoker Hx Substance Use: No Alcohol Screening: None - Immunizations Tetanus Shot up to Date: Yes Physical Exam - Physical Exam Appearance: Well-appearing Eyes: BELLE, EOMI, Conjunctiva clear ENT: Ears normal, Nose normal, Oropharynx normal Neck: Supple Respiratory: Airway patent, Breath sounds clear, Breath sounds equal, Respirations nonlabored Cardiovascular: RRR GI/: Soft, Nontender, No masses, Bowel sounds normal, No Organomegaly Musculoskeletal: Normal strength, ROM intact, No edema, No calf tenderness Skin: Warm, Dry, Normal color Neurological: Sensation intact, Motor intact, Reflexes intact, Cranial nerves intact, Alert, Oriented Psychiatric: Affect appropriate, Mood appropriate Re-Evaluation - Re-Evaluation Time of Re-Evaluation: 23:43 Status: Improved Vital Signs Stable: Yes Pain Level: 0 Appearance: NAD Lungs: Clear Skin: Warm and Dry Neuro: Alert and Oriented X3 CV: RRR Additional Comments: feeling much better--dizzines and nausea and agitation are much better Critical Care Note - Critical Care Note Total Time (mins): 0 Course - Course Orders, Labs, Meds: Orders Category Date Time Status Nicotine 14 mg [Nicoderm 14 mg] MEDS 09/21/18 21:31 Discontinued 1 patch TD ONCE STA Medications Discontinued Medications Generic Name Dose Route Start Last Admin Trade Name Ronak PRN Reason Stop Dose Admin Nicotine 1 patch 09/21/18 21:31 09/21/18 21:44 Nicoderm 14 Mg TD 09/21/18 21:32 1 patch ONCE STA Administration she declines any evaluation of abdominal pain--she understands this could result in injury or but she still refuses Vital Signs: Temp Pulse Resp BP Pulse Ox 09/21/18 21:15 97.9 F 84 18 117/71 98 Departure - Departure Time of Disposition: 23:44 Disposition: HOME SELF-CARE Discharge Problem: Nicotine withdrawal Instructions: Nicotine (Absorbed through the skin) Condition: Good Pt referred to PMD for follow-up: No IPMP verified?: Yes Additional Instructions: f/u with pcp Allergies/Adverse Reactions: Allergies contrast dye Allergy (Severe, Uncoded 09/21/18 21:24) rash pt notified to get medical alert necklace No Known Allergies Allergy (Uncoded 09/21/18 21:24) Home Medications: Ambulatory Orders Calcium Carbonate [Calcium] 600 mg PO DAILY 08/16/14 Levothyroxine Sodium [Synthroid] 150 mcg PO DAILY 09/21/18 Disposition Discussed With: Patient
== END 2018-09-21 23:50 | disposition home or self-care (01) ==
LOC: ED 21:12
DX: F17.203 Nicotine dependence unspecified, with withdrawal (principal); R42 Dizziness and giddiness; R11.0 Nausea; R10.9 Unspecified abdominal pain
CPT/HCPCS: 99282

== ENCOUNTER 2018-11-05 10:24 | Outpatient (CLI) ==
[2018-10-07 20:18] VITALS: BMI 22.4
== END 2018-11-05 10:25 | disposition home or self-care (01) ==
LOC: LAB 10:24
PROVIDERS: ATTEND Internal Medicine Endocrinology, Diabetes & Metabolism
DX: C73 Malignant neoplasm of thyroid gland (principal)
CPT/HCPCS: 36415; 80048; 84443; 86376; 86800